=== PATIENT | female | born 1940 | race Caucasian/White ===

== ENCOUNTER 2016-10-13 11:58 | Inpatient (IN) | payer MEDICARE, OTHER ==
[2016-10-13] MEDS ORDERED: ONDANSETRON HCL/PF 2 MG/ML VIAL IV ONE (12:21)
[2016-10-13] MEDS ORDERED: MORPHINE SULFATE 2 MG/ML DISP.SYRIN IV ONE ×3 (12:21→15:34)
[2016-10-13] MEDS ORDERED: MORPHINE SULFATE 2 MG/ML DISP.SYRIN ONE ×3 (12:23→15:32)
[2016-10-13] MEDS ORDERED: ONDANSETRON HCL/PF 2 MG/ML VIAL ONE (12:23)
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
[2016-10-13 13:30] LABS: Hematocrit 41.7 % (37.0-47.0); Hemoglobin 14.1 gm/dL (12.5-16.0); Mean Cell Volume 91.9 fl (78-100); Mean Corpuscular Hemoglobin 31.1 pg (27-31); Mean Corpuscular Hgb Conc 33.8 g/dl (32-36); Neutrophil % 49.4 % (42-75.0); Platelet Count 283 K/mm3 (150-450); Red Blood Count 4.54 M/mm3 (4.2-5.4); Red Cell Distribution Width 13.2 % (11.5-14.0)
[2016-10-13 13:40] LABS: Albumin * 3.8 gm/dl (3.4-5.0); Anion Gap 15.2 mmol/L (6.8-13.8); Bilirubin, Total 0.3 mg/dL (0.0-1.1); Ca. Corrected For Albumin 9.1 mg/dL (8.4-10.2); Calcium * 9.3 mg/dL (7.9-10.9); Carbon Dioxide 24.6 mmol/L (24-32.6); Potassium 3.8 mmol/L (3.4-4.6); Total Protein 7.3 gm/dL (6.2-8.2)
[2016-10-13 13:43] LABS: Urine Bilirubin Negative (NEGATIVE); Urine Blood Negative /ul (NEGATIVE); Urine Ketone Negative (NEGATIVE); Urine Nitrite Negative (NEGATIVE); Urine Protein Negative (NEGATIVE); Urine Specific Gravity <=1.005 SP.GR. (1.005-1.010); Urine Urobilinogen Normal (NORMAL); Urine pH 8.5 pH (5.0-7.0)
[2016-10-13 13:50] LABS: Urine Appearance Clear; Urine Bacteria TRACE; Urine Color Pale Yellow; Urine RBC None Seen /hpf (0-5); Urine WBC 0-5 /hpf (0-5)
--- OUTSIDE RECORDS SUMMARY | 2016-10-13 14:29 | XMS REPORT | Continuity of Care Document ---
:1940 Author Organization [facility] ([facility]) Address [address] [place] [address] Phone [phone] Care Team Providers Name Role Phone Unavailable Primary Care Provider Unavailable Source Comments This disclosure is being made pursuant to the Care Everywhere program, applicable federal and state laws, and may not contain all informaitonavailable regarding this patient.[facility] ([facility]) Active Allergies and Adverse Reactions Not on File Current Medications Not on file Active Problems Not on file Social History Tobacco Use Types Packs/Day Years Used Date Never Assessed Plan of Care Health Maintenance Due Date Last Done Comments Hepatitis B Vaccine (1 of 3 - Primary Series) 1940 Tdap Vaccine 1953 Lipid Disorder Screening 1960 Td Vaccine 1960 Mammogram 1982 Colonoscopy 08/04/1992 Zoster Vaccine 2002 Osteoporosis Screening (DXA Bone Density) 2007 Pneumococcal Vaccine (1 of 2 - PCV13) 2007 Influenza Vaccine: Seasonal (#1) 01/20/2016 Results from Last 3 Months Not on file
--- OUTSIDE RECORDS SUMMARY | 2016-10-13 14:32 | XMS REPORT | Continuity of Care Document ---
:1940 Author Organization [facility] ([facility]) Address [address] [place] [address] Phone [phone] Care Team Providers Name Role Phone Unavailable Primary Care Provider Unavailable Source Comments This disclosure is being made pursuant to the Care Everywhere program, applicable federal and state laws, and may not contain all informaitonavailable regarding this patient.[facility] ([facility]) Active Allergies and Adverse Reactions Not [...]
--- NOTE | 2016-10-13 16:29 | HP ---
Chief Complaint - Chief Complaint Date of Service: 10/13/16 Time of Service: 16:18 Chief Complaint: right hip pain History of Present Illness: Devi Gar, is a 76-year-old white female, with previous medical history of hyperlipidemia, impaired fasting glucose, kidney stones, Diverticulosis, who was in admitted on 10/13/2016 for right hip pain. A few hours prior to admission , the patient was watering her garden and drop the water hose to the ground to go back to the house. As she was doing this she tripped over the water hose and fell down on her right side. She was able to stand initially but then developed severe right hip pain and so she was brought to the emergency room by private vehicle. In the emergency room she was found to have minimally displaced impacted right femoral neck fracture. She was then admitted for further orthopedic intervention. She denied any chest pain, shortness of breath , palpitation. - Patient's Past Medical History Patient History - Medical: Kidney stone Patient History - Cardiac/Respiratory: Hyperlipidemia Patient History - Cancer: No Hx of Cancer Patient History - Surgical Procedures: Appendectomy, Colonoscopy - Diverticulosis, last in 2015, D & C, Hysterectomy, Other - FLORENCIO 1999, Orthopedic - Shoulder 2006 Patient History - Other: None LMP (females 10-50): Menopausal - Family History Mother Family History - Medical: , No pertinent hx Family History - Cardiac/Respiratory: No pertinent hx Father Family History - Medical: , Diabetes Type 2 Family History - Cardiac/Respiratory: Hypertension, Other - Social History Living Situations: spouse Abuse History: No History of abuse Psych History: Hx of Depression, Current tx/ever been on anti-depressants or anti-anxiety meds Smoking Status: Former smoker - quit at age 33 Alcohol Use: none Drug Use: none - Immunizations Immunizations Up to Date: Yes - last tetanus in 2010 Hx Pneumococcal Vaccination: Yes - 2014 History of Influenza Vaccine: Yes - 2015 Review Of Systems (GEN) - Review of Systems Generalized/Overall Review: Absent: Weakness, Chills, Fever EENTM: Present: No Symptoms Reported Respiratory: Absent: Cough, Shortness of Breath, Orthopnea Cardiac: Absent: Chest Pain, Edema, Palpitations Abdominal: Absent: Nausea, Vomiting Genitourinary: Absent: Urgency, Frequency Musculoskeletal: Present: Joint Pain Allergies/Adverse Reactions: Allergies Allergy/AdvReac Type Severity Reaction Status Date / Time JOHNNY Inhibitors AdvReac Mild cough Verified 10/13/16 16:36 [Johnny Inhibitors] celecoxib [From Celebrex] AdvReac Mild TINNITUS Verified 10/13/16 16:36 NSAIDS (Non-Steroidal AdvReac Mild TINNITUS Verified 10/13/16 16:36 Anti-Inflamma propoxyphene HCl AdvReac Mild equilibrium Verified 10/13/16 16:36 [From Darvon] upset Home Medications: HOME MEDICATIONS Acetaminophen [Tylenol-Arthritis] 650 mg PO BID 12/05/12 [Last Taken 02/07/13] Pravastatin Sodium [Pravachol] 80 mg PO HS 12/05/12 [Last Taken 02/06/13] metFORMIN HCL [Glucophage] 500 mg PO BIDWM 12/05/12 [Last Taken 02/07/13] Ascorbic Acid [Vitamin C with Jacki Hips] 1,000 mg PO DAILY 02/25/16 [Last Taken Unknown] Aspirin [Aspirin Enteric Coated] 81 mg PO DAILY 02/25/16 [Last Taken Unknown] Calcium Carbonate/Vitamin D3 [Calcium 600 + Vit D3 Caplet] 1 each PO BID [Last Taken Unknown] Estrogens, Conjugated [Premarin] 0.5 gm VG 2XW PRN 02/25/16 [Last Taken Unknown] FLUoxetine HCL [Prozac] 20 mg PO DAILY 02/25/16 [Last Taken Unknown] Fexofenadine/Pseudoephedrine [Ethel-D 24 Hour Tablet] 1 each PO DAILY PRN 12/04 [Last Taken Unknown] LORazepam [Ativan] 0.5 mg PO HS 02/25/16 [Last Taken Unknown] Cetirizine HCl/Pseudoephedrine [Allergy D-12 Tablet] 1 each PO DAILY 10/13/16 [ Last Taken Unknown] Clobetasol Propionate/Emoll [Clobetasol Emollient 0.05% Crm] 15 gm TP PRN PRN [Last Taken Unknown] Exam - Exam Vital Signs: Vital Signs - Last Taken Temp 36.9 C 10/13/16 16:06 Pulse 76 10/13/16 16:06 Resp 16 10/13/16 16:06 BP 153/74 10/13/16 16:06 Pulse Ox 97 10/13/16 16:06 Constitutional: Present: Alert, Oriented x3, Cooperative ENT Exam: Present: hearing grossly normal Eye Exam: bilateral eye: normal inspection, PERRL, EOMI Neck: Present: supple Back Exam: Present: no CVA tenderness Breasts: Present: Exam deferred Respiratory: Present: normal breath sounds, No rales, No wheezing Cardiovascular/Chest: Present: normal peripheral pulses, regular rate, rhythm, no murmur Abdomen: Present: Normal bowel sounds, soft, nontender, nondistended Extremity: Present: no pedal edema, no calf tenderness, other - bruise, right elbow Diagnostic Studies: Laboratory Results WBC 8.0 K/mm3 (4.0-10.5) 10/13/16 13:15 RBC 4.54 M/mm3 (4.2-5.4) 10/13/16 13:15 Hgb 14.1 gm/dL (12.5-16.0) 10/13/16 13:15 Hct 41.7 % (37.0-47.0) 10/13/16 13:15 MCV 91.9 fl (78-100) 10/13/16 13:15 MCH 31.1 pg (27-31) H 10/13/16 13:15 MCHC 33.8 g/dl (32-36) 10/13/16 13:15 RDW 13.2 % (11.5-14.0) 10/13/16 13:15 Plt Count 283 K/mm3 (150-450) 10/13/16 13:15 MPV 10.0 fl (6.0-9.5) H 10/13/16 13:15 Immature Gran % (Auto) 0.60 % (0.001-0.429) H 10/13/16 13:15 Immature Gran # (Auto) 0.05 K/mm3 (0.000-0.0310) H 10/13/16 13:15 Neutrophils % 49.4 % (42-75.0) 10/13/16 13:15 Lymphocytes % 39.9 % (20-51) 10/13/16 13:15 Monocytes % 8.8 % (0.0-9) 10/13/16 13:15 Eosinophils % 0.6 % (0.0-3.0) 10/13/16 13:15 Basophils % 0.7 % (0.0-1.0) 10/13/16 13:15 Nucleated RBC % 0.0 k/mm3 (0-1) 10/13/16 13:15 Neutrophils # 4.0 K/mm3 (1.3-6.0) 10/13/16 13:15 Lymphocytes # 3.2 k/mm3 (1.5-3.5) 10/13/16 13:15 Monocytes # 0.7 k/mm3 (0.0-1.0) 10/13/16 13:15 Eosinophils # 0.1 k/mm3 (0.0-0.7) 10/13/16 13:15 Absolute Basophils 0.1 k/mm3 (0.0-0.1) 10/13/16 13:15 Sodium 141 mmol/L (132-142) 10/13/16 13:15 Plasma Sodium 141 mmol/L (130-142) 10/13/16 13:15 Potassium 3.8 mmol/L (3.4-4.6) 10/13/16 13:15 Chloride 105 mmol/L (97-106) 10/13/16 13:15 Carbon Dioxide 24.6 mmol/L (24-32.6) 10/13/16 13:15 Anion Gap 15.2 mmol/L (6.8-13.8) H 10/13/16 13:15 BUN 15 mg/dL (3-23) D 10/13/16 13:15 Creatinine 1.00 mg/dL (0.4-1.4) 10/13/16 13:15 Est GFR (Non-Af Amer) 58 mL/min (60-130) L D 10/13/16 13:15 BUN/Creatinine Ratio 15.0 (9.0-21.6) 10/13/16 13:15 Random Glucose 97 mg/dL (70-110) 10/13/16 13:15 Calcium 9.3 mg/dL (7.9-10.9) 10/13/16 13:15 Calcium Adj for Albumin 9.1 mg/dL (8.4-10.2) 10/13/16 13:15 Total Bilirubin 0.3 mg/dL (0.0-1.1) 10/13/16 13:15 AST 18 U/L (0-48) 10/13/16 13:15 ALT 19 U/L (19-67) 10/13/16 13:15 Alkaline Phosphatase 74 U/L (50-170) 10/13/16 13:15 Total Protein 7.3 gm/dL (6.2-8.2) 10/13/16 13:15 Albumin 3.8 gm/dl (3.4-5.0) 10/13/16 13:15 Urine Color Pale yellow 10/13/16 13:35 Urine Appearance Clear 10/13/16 13:35 Urine pH 8.5 pH (5.0-7.0) 10/13/16 13:35 Ur Specific [place] <=1.005 SP.GR. (1.005-1.010) 10/13/16 13:35 Urine Protein Negative mg/dL (NEGATIVE) 10/13/16 13:35 Urine Glucose (UA) Negative mg/dL (NEGATIVE) 10/13/16 13:35 Urine Ketones Negative mg/dL (NEGATIVE) 10/13/16 13:35 Urine Blood Negative /ul (NEGATIVE) 10/13/16 13:35 Urine Nitrate Negative (NEGATIVE) 10/13/16 13:35 Urine Bilirubin Negative mg/dl (NEGATIVE) 10/13/16 13:35 Urine Urobilinogen Normal EU/dl (NORMAL) 10/13/16 13:35 Ur Leukocyte Esterase Negative /ul (NEGATIVE) 10/13/16 13:35 Urine RBC None seen /hpf (0-5) 10/13/16 13:35 Urine WBC 0-5 /hpf (0-5) 10/13/16 13:35 Ur Epithelial Cells None seen /hpf (0-5) 10/13/16 13:35 Urine Bacteria Trace (NONE) 10/13/16 13:35 Urine Culture Comments Culture to follow 10/13/16 13:35 Assessment/Plan - Assessment/Plan (1) Hip fracture, right Assessment: Femoral neck Fracture, subcapital. For ORIF. Dr. Sanchez was consulted. She may proceed with anticipated surgery. Problem: Acute Qualifiers: Encounter type: initial encounter Fracture type: closed Qualified Code(s) : S72.001A - Fracture of unspecified part of neck of right femur, initial encounter for closed fracture (2) Hyperlipidemia Problem: Chronic Qualifiers: Hyperlipidemia type: mixed hyperlipidemia Qualified Code(s): E78.2 - Mixed hyperlipidemia (3) Impaired fasting glucose Problem: Chronic
[2016-10-13] MEDS ORDERED: ESTROGENS, CONJUGATED 30 APPL TUBE VG SCH (16:30)
[2016-10-13] MEDS ORDERED: ONDANSETRON HCL/PF 2 MG/ML VIAL IV PRN (16:43)
[2016-10-13] MEDS ORDERED: ACETAMINOPHEN 325 MG TABLET PO PRN (16:44)
[2016-10-13] MEDS: MORPHINE SULFATE 2 MG/ML DISP.SYRIN IV PRN ×2 (17:19→19:19)
[2016-10-13] MEDS ORDERED: rOPINIRole HCL 1 MG TABLET PO ONE (17:51)
[2016-10-13] MEDS: CALCIUM CARBONATE/VITAMIN D3 1 TAB TABLET PO SCH (20:58)
[2016-10-13] MEDS: LORazepam 0.5 MG TABLET PO SCH (20:58)
[2016-10-14] MEDS: MORPHINE SULFATE 2 MG/ML DISP.SYRIN IV PRN ×4 (00:10→11:39)
[2016-10-14] MEDS: DEXTROSE 5%-0.5 NORMAL SALINE 1,000 ML IV PRN ×3 (00:10→18:52)
--- NOTE | 2016-10-14 07:48 | PN ---
Subjective - Date and Time Seen Date: 10/14/16 Time: 07:46 Subjective Narrative: Chief complain of hip pain. Objective - Review of Systems Generalized/Overall Review: Denies: Chills, Fever EENTM: Reports: No Symptoms Reported Respiratory: Denies: Cough, Shortness of Breath, Orthopnea Cardiac: Denies: Chest Pain, Edema, Palpitations Abdominal: Denies: Nausea, Vomiting Genitourinary Symptoms: Denies: Urgency, Frequency Musculoskeletal Complaints: Reports: Joint Pain - Vitals Vitals: Last Vital Signs Temp 36.9 C 10/14/16 07:11 Pulse 78 10/14/16 07:11 Resp 18 10/14/16 07:11 BP 158/75 10/14/16 07:11 Pulse Ox 95 10/14/16 07:11 - Exam Constitutional: Present: Alert, Oriented x3, Cooperative ENT Exam: Present: hearing grossly normal Neck: Present: supple Breasts: Present: Exam deferred Respiratory: Present: normal breath sounds, No rales, No wheezing Cardiovascular/Chest: Present: regular rate, rhythm, no JVD, no murmur Abdomen: Present: Normal bowel sounds, soft, nontender, nondistended Extremity: Present: no pedal edema, no calf tenderness Cauti Physician Documentation - Urinary Catheter Management Urethral (Helms) Date of Insertion: 10/13/16 Time of Insertion: 13:36 Assessment/Plan - Problems/Diagnosis (1) Hip fracture, right Problem: Acute Qualifiers: Encounter type: initial encounter Fracture type: closed Qualified Code(s) : S72.001A - Fracture of unspecified part of neck of right femur, initial encounter for closed fracture Narrative: for OR today. (2) Hyperlipidemia Problem: Chronic Qualifiers: Hyperlipidemia type: mixed hyperlipidemia Qualified Code(s): E78.2 - Mixed hyperlipidemia (3) Impaired fasting glucose Problem: Chronic
--- NOTE | 2016-10-14 08:35 | CONS ---
[facility] - General Date of Service: 10/14/16 Narrative: Devi is a 76 yo F admitted for a R femoral neck fracture. She sustained the fracture after a ground level fall onto concrete after tripping on a hose at home. She was initially evaluated in the [facility] ED where plain films revealed the above injury. Her pain is currently controlled with IV pain medication. She denies any other injuries. Denies numbness or tingling in the RLE. She is an independent community ambulator who helps take care of her two grandchildren. - History of Present Illness Allergies/Adverse Reactions: Allergies JOHNNY Inhibitors [Johnny Inhibitors] Adverse Reaction (Mild, Verified 10/13/16 16:36) cough celecoxib [From Celebrex] Adverse Reaction (Mild, Verified 10/13/16 16:36) TINNITUS NSAIDS (Non-Steroidal Anti-Inflamma Adverse Reaction (Mild, Verified 10/13/16 16 :36) TINNITUS propoxyphene HCl [From Darvon] Adverse Reaction (Mild, Verified 10/13/16 16:36) equilibrium upset Home Medications: Home Medications Medication Instructions Recorded Last Taken Acetaminophen [Tylenol-Arthritis] 650 mg PO BID 12/05/12 02/07/13 Pravastatin Sodium [Pravachol] 80 mg PO HS 12/05/12 02/06/13 metFORMIN HCL [Glucophage] 500 mg PO BIDWM 12/05/12 02/07/13 Ascorbic Acid [Vitamin C with Jacki 1,000 mg PO DAILY 02/25/16 Unknown Hips] Aspirin [Aspirin Enteric Coated] 81 mg PO DAILY 02/25/16 Unknown Calcium Carbonate/Vitamin D3 1 each PO BID 02/25/16 Unknown [Calcium 600 + Vit D3 Caplet] Estrogens, Conjugated [Premarin] 0.5 gm VG 2XW PRN 02/25/16 Unknown FLUoxetine HCL [Prozac] 20 mg PO DAILY 02/25/16 Unknown Fexofenadine/Pseudoephedrine 1 each PO DAILY PRN 02/25/16 Unknown [Ethel-D 24 Hour Tablet] LORazepam [Ativan] 0.5 mg PO HS 02/25/16 Unknown Cetirizine HCl/Pseudoephedrine 1 each PO DAILY 10/13/16 Unknown [Allergy D-12 Tablet] Clobetasol Propionate/Emoll 15 gm TP PRN PRN 10/13/16 Unknown [Clobetasol Emollient 0.05% Crm] - Patient's Past Medical History Patient History - Medical: Kidney stone Patient History - Cardiac/Respiratory: Hyperlipidemia Patient History - Cancer: No Hx of Cancer Patient History - Surgical Procedures: Appendectomy, Colonoscopy - Diverticulosis, last in 2015, D & C, Hysterectomy, Other - FLORENCIO 1999, Orthopedic - Shoulder 2006 Patient History - Other: None LMP (females 10-50): Menopausal - Family History Mother Family History - Medical: , No pertinent hx Family History - Cardiac/Respiratory: No pertinent hx Father Family History - Medical: , Diabetes Type 2 Family History - Cardiac/Respiratory: Hypertension, Other - Social History Living Situations: spouse Abuse History: No History of abuse Psych History: Hx of Depression, Current tx/ever been on anti-depressants or anti-anxiety meds Smoking Status: Former smoker - quit at age 33 Have you smoked in the past 12 months: No Alcohol Use: none Drug Use: none - Immunizations Immunizations Up to Date: Yes - last tetanus in 2010 Hx Pneumococcal Vaccination: Yes - 2014 History of Influenza Vaccine: Yes - 2015 Procedures ANESTH INJECT-SPIN CANAL (12/21/00) CONTRAST ARTHROGRAM (04/22/06) ENDOSC POLYPECTOMY OF LG INTEST (03/11/04) EXCISION OF LARGE INTESTINE, ENDO, DIAGN (03/16/16) EXCISION OF RECTUM, ENDO, DIAGN (03/16/16) INJECT STEROID (12/21/00) PERCUTAN NEEDLE BIOPSY OF BREAST (04/14/05) SPINAL CANAL INJECT NEC (12/21/00) Medications - Medications Current Medications: Current Medications Calcium/Vitamin D (Calcarb 600 With Vitamin D) 1 tab PO BID LAXMI Stop: 11/12/16 21:01 Last Admin: 10/13/16 20:58 Dose: 1 tab Dextrose/Sodium Chloride (Dextrose 5%-0.45%Ns) 1,000 mls @ 75 mls/hr IV .[id number] PRN PRN Reason: HYDRATION Stop: 11/12/16 23:56 Last Admin: 10/14/16 00:10 Dose: 75 mls/hr Lorazepam (Ativan) 0.5 mg PO BID LAXMI Stop: 11/12/16 21:01 Last Admin: 10/13/16 20:58 Dose: 0.5 mg Morphine Sulfate (Morphine Sulfate) 2 mg IV Q2H PRN PRN Reason: Moderate Pain Stop: 11/12/16 16:42 Last Admin: 10/14/16 07:16 Dose: 2 mg Physical Examination - Exam Narrative: Gen: A&Ox4, NAD Resp: breathing non-labored on RA, lungs clear to auscultation CV: RRR, no murmurs/rubs/gallops MSK: tender about R hip, pain with gentle motion, 5/5 DF/PF/EHL/FHL, SILT, distal cap refill brisk Vital Signs: Vital Signs - Last Taken Temp 36.9 C 10/14/16 07:11 Pulse 78 10/14/16 07:11 Resp 18 10/14/16 07:11 BP 158/75 10/14/16 07:11 Pulse Ox 95 10/14/16 07:11 O2 Oxygen Delivery Method Room Air - Results and Findings: Narrative: 76 yo F community ambulator with displaced R femoral neck fracture. - Discussed treatment options with patient in detail today. She has a mildly displaced femoral neck fracture with significant valgus impaction. I think the best treatment based on the fracture and her functional status would be a total hip arthroplasty. I discussed the risks and benefits in detail with patient including, but not limited to, infection, bleeding, neurovascular injury, fracture, dislocation, loosening/implant failure, leg length discrepancy, wound complications, DVT/PE, and . I also discussed the procedure itself as well as the expected postoperative recovery and precautions. After discussion, the patient wishes to proceed with R total hip arthroplasty later this afternoon. - informed consent obtained - patient NPO since MN - bedrest - monroe catheter - continue care per Medicine team - dispo: Continue inpatient care - Assessments/Findings (1) Hip fracture, right Problem: Acute Qualifiers: Encounter type: initial encounter Fracture type: closed Qualified Code(s) : S72.001A - Fracture of unspecified part of neck of right femur, initial encounter for closed fracture
[2016-10-14] MEDS ORDERED: FLUoxetine HCL 20 MG CAPSULE PO SCH (09:00)
[2016-10-14] MEDS: LORazepam 0.5 MG TABLET PO SCH ×2 (10:25→20:20)
[2016-10-14] MEDS: FLUoxetine HCL 20 MG CAPSULE PO SCH (10:25)
[2016-10-14] MEDS: CALCIUM CARBONATE/VITAMIN D3 1 TAB TABLET PO SCH ×2 (10:25→20:20)
[2016-10-14] MEDS ORDERED: RINGERS SOLUTION,LACTATED 900 ML IV ONE (15:05)
[2016-10-14] MEDS ORDERED: ceFAZolin SODIUM 1 GM VIAL IM/IV ONE (15:35)
[2016-10-14] MEDS ORDERED: RINGERS SOLUTION,LACTATED 1,000 ML IV ONE (16:30)
[2016-10-14] MEDS ORDERED: MAG HYDROX/ALUMINUM HYD/SIMETH 30 ML UDC PO PRN (18:13)
[2016-10-14] MEDS ORDERED: PROMETHAZINE HCL 5 MG in DEXTROSE 5 % IN WATER 50 ML IV PRN ×2 (18:13)
[2016-10-14] MEDS ORDERED: ACETAMINOPHEN 500 MG TABLET PO PRN (18:13)
[2016-10-14] MEDS ORDERED: MAGNESIUM HYDROXIDE 30 ML UDC PO PRN (18:13)
[2016-10-14] MEDS ORDERED: ONDANSETRON HCL/PF 2 MG/ML VIAL IV PRN (18:13)
[2016-10-14] MEDS ORDERED: oxyCODONE HCL/ACETAMINOPHEN 1 TAB TABLET PO PRN (18:13)
--- NOTE | 2016-10-14 18:13 | OR ---
Operative Report - Dictated Report Narrative: Date: 10/14/2016 Preoperative diagnosis: Right displaced subcapital femoral neck fracture Postoperative diagnosis: Right displaced subcapital femoral neck fracture Procedure: Right Total hip arthroplasty. Surgeon: Michael Sanchez M.D. Athletic Coach: Girma Lockwood RN Anesthesia: Spinal Complications: None Specimens: Bone for disposal. Estimated blood loss: 200 milliliters. Retained implants: Depuy [place] size 5 femoral stem standard offset. Size 50 millimeter ouside diameter 3-hole [place] Gription acetabular cup. 50 millimeter outside by 32 millimeter inside diameter highly cross-linked acetabular liner. 32 millimeter diameter + 9 millimeter cobalt chromium femoral head. Cancellous 6.5mm screw 35 millimeter length Indications: Devi Is a 76-year-old female community ambulator who sustained a right displaced subcapital femoral neck fracture after a trip and fall from standing height. She was initially evaluated in the [facility] emergency department where workup revealed the above injury. She was admitted to the hospital under the internal medicine service and orthopedics was consult. I counseled her on treatment options and recommended a total hip arthroplasty based on the displacement of the fracture as well as her functional status. The risks, benefits, and alternatives were discussed in clinic. The risks of , blood clots, bleeding, infection, nerve/tendon blood vessel/ injury, malposition of components, dislocation and/or instability of joint, intraoperative fracture, postoperative limited range of motion, persistent pain, failure of components, need for additional procedures, DVT/PE, and . Patient wished to proceed. Consent was obtained after answering all questions. Procedure: After marking the correct extremity on the floor, the patient was taken to the operating room. A timeout was performed. IV antibiotics consisting of 1 g of Ancef were administered prior to the procedure. A spinal anesthetic was induced by anesthesia. The patient was then transitioned to a lateral position on a well-padded pegboard. And an axillary roll was placed. The head was in neutral position. The non-operative down leg was well-padded with SCD and KAREN hose in place. The arms were supported and padded to protect from any undue pressure on the bony prominences and nerves. Well-padded anterior and posterior pelvic and chest posts were secured in order to maintain a stable position of the pelvis. This was placed so that the pelvis was perpendicular to the floor. The body was in line with the pelvis. Once it was felt that we had protected all the bony prominences and the patient was well secured with a safety belt as well, the leg was pre-scrubbed with alcohol, prepped and draped in a standard sterile fashion. A standard anterior lateral hip incision was marked out over the greater trochanter. Ioban drapes were then placed. The skin incision was then made. Sharp dissection with a scalpel utilizing cautery for hemostasis was carried out down to the gluteus and iliotibial band fascia. This was split in line with the skin incision. The greater trochanter bursa was excised. The anterior and posterior margins of the abductor tendon were identified. The anterior 1/3 of the tendon was tagged and reflected off the greater trochanter leaving a sleeve of tendon for repair at the completion of the case. This exposed the underlying hip joint capsule. A limb length stitch was placed in the skin and referenced off a zarina on the greater trochanter for evaluation of intraoperative limb lengths. An inverted T-type capsulotomy was made extending this up to the brim of the acetabulum. Fracture hematoma was immediately encountered. The subcapital femoral neck fracture was visualized and found to have significant valgus impaction. Using Homans to assist with elevation of the soft tissues off the anterior, superior, and inferior aspects of the femoral neck, the hip was then placed in a figure 4 position and dislocated with the femoral head remaining in the acetabulum. With the leg in an externally rotated and adducted position, the cutting flag was utilized in order to zarina for a standard femoral neck cut approximately a fingerbreadth above the level of the lesser trochanter. This was done while protecting the surrounding soft tissues with Homans. The femoral neck fracture was then cleaned up along the marked out cut with a reciprocating saw. The femoral head was then removed using a corkscrew and sized for guidance on preparation of the acetabulum. It was noted that there was minimal loss of articular cartilage on both the femoral head and weightbearing portions of the acetabulum. We then returned the leg to the table and turned our attention to the acetabulum. While protecting the surrounding soft tissues, the labrum and remaining tissue in the fovea were excised using a scalpel and cautery. A series of reamers up to size 49 millimeter were utilized to prepare the acetabulum. The final reamer had good purchase and exposed the bleeding subchondral bone. The acetabulum was then thoroughly irrigated ensuring that all bony and cartilaginous materials were removed and the final acetabular shell was impacted into place. This was placed in approximately 45 degrees of abduction and 20 degrees of anteversion utilizing the outrigger and body axis for alignment. This had a good press fit. One 6.5 x 35 mm cancellous screw was placed in the posterior superior quadrant of the acetabulum. The shell was then thoroughly irrigated and the final polyethylene was impacted into place ensuring that it seated completely. This was then protected with a sponge while we returned our attention to the femur. With the leg in a figure 4 position utilizing Homans for soft tissue protection , a box cutting osteotome, followed by Charnley awl, followed by serial reamers and broaches were utilized in order to prepare the femur. It was found that a size 5 broach gave good axial and rotational stability. The calcar reamer was utilized in order to clean up the cut edges. The proximal femur was visualized to ensure that there were no signs of fracture. A series of heads and necks were trialed. It was found that a standard neck and a + 9 femoral head gave good overall stability. There is minimal longitudinal instability. With the leg in the position of sleep the femoral head was well covered. Hip range of motion was able to reach full extension and external rotation to greater than 75 degrees prior to impingement along the posterior acetabulum. The hip was able to be flexed to greater than 90 degrees with internal rotation greater than 60 degrees prior to anterior impingement. The limb lengths were near equal based on comparison to the contralateral side in the prior placed limb length stitch. At this point was felt this was the appropriately sized femoral components as well as neck and femoral head. The trial implants were removed. The femur was thoroughly irrigated. The final implants were impacted in the place and the hip was reduced. The capsule was repaired with interrupted #1 Ethibond. The abductor tendon was repaired utilizing #5 Ethibond. This was oversewn with #1 Vicryl. The fascia was closed with interrupted #1 Vicryl. The wounds were thoroughly irrigated as we closed in layers. The deep fat layers were closed with 0 Vicryl. The subcutaneous tissue was closed with interrupted 3-0 Vicryl and the skin with a running subcuticular 3-0 monocryl and Prineo dressing. All sponge, needle, blade, and instrument counts were correct prior to closing the wounds. Sterile dressings consisting of 4 x 4's and tape were applied. The patient was awoken and transferred to her hospital bed and then to the postanesthesia care unit in stable condition.
[2016-10-14] MEDS: ceFAZolin SODIUM 1 GM in DEXTROSE 5 % IN WATER 100 ML IV SCH ×2 (20:19)
[2016-10-14] MEDS: SENNOSIDES/DOCUSATE SODIUM 1 TAB TABLET PO SCH (20:20)
[2016-10-14] MEDS: MORPHINE SULFATE 4 MG/ML SYRG IV PRN (21:01)
[2016-10-14] MEDS: oxyCODONE HCL/ACETAMINOPHEN 1 TAB TABLET PO PRN (23:01)
[2016-10-15] MEDS: ceFAZolin SODIUM 1 GM in DEXTROSE 5 % IN WATER 100 ML IV SCH ×4 (01:49→09:07)
[2016-10-15] MEDS: MORPHINE SULFATE 4 MG/ML SYRG IV PRN (01:49)
[2016-10-15] MEDS: oxyCODONE HCL/ACETAMINOPHEN 1 TAB TABLET PO PRN ×4 (04:13→19:58)
[2016-10-15 05:46] LABS: Hematocrit 36.9 % (37.0-47.0); Hemoglobin 12.4 gm/dL (12.5-16.0); Mean Cell Volume 93.4 fl (78-100); Mean Corpuscular Hemoglobin 31.4 pg (27-31); Mean Corpuscular Hgb Conc 33.6 g/dl (32-36); Mean Platelet Volume 10.4 fl (6.0-9.5); Platelet Count 222 K/mm3 (150-450); Red Blood Count 3.95 M/mm3 (4.2-5.4); White Blood Count 12.7 K/mm3 (4.0-10.5)
[2016-10-15 05:48] LABS: Anion Gap 13.6 mmol/L (6.8-13.8); BUN/Creatinine Ratio 10.2 (9.0-21.6); Calcium * 8.3 mg/dL (7.9-10.9); Carbon Dioxide 24.3 mmol/L (24-32.6); Estimated Creat Clear 46.4; Potassium 3.9 mmol/L (3.4-4.6)
[2016-10-15] MEDS ORDERED: MORPHINE SULFATE 2 MG/ML DISP.SYRIN IV PRN (06:23)
--- NOTE | 2016-10-15 08:00 | PN ---
Subjective - Date and Time Seen Date: 10/15/16 Time: 07:49 Subjective Narrative: POS # 1. Afebrile- Tmax 36.9. chief complaint of pain. Objective - Review of Systems Generalized/Overall Review: Denies: Chills, Fever EENTM: Reports: No Symptoms Reported Respiratory: Denies: Shortness of Breath, Orthopnea Cardiac: Denies: Chest Pain, Palpitations Abdominal: Denies: Nausea, Vomiting Genitourinary Symptoms: Denies: Urgency, Frequency Musculoskeletal Complaints: Reports: Joint Pain - Vitals Vitals: Last Vital Signs Temp 36.9 C 10/15/16 06:44 Pulse 91 10/15/16 06:44 Resp 14 10/15/16 06:44 BP 173/80 10/15/16 06:44 Pulse Ox 100 10/15/16 06:44 - Abnormal Lab Findings Abnormal Lab Findings: Abnormal Lab Results 10/15/16 10/15/16 Range/Units 05:37 05:37 WBC 12.7 H D (4.0-10.5) K/mm3 RBC 3.95 L (4.2-5.4) M/mm3 Hgb 12.4 L (12.5-16.0) gm/dL Hct 36.9 L (37.0-47.0) % MCH 31.4 H (27-31) pg MPV 10.4 H (6.0-9.5) fl Random Glucose 176 H D (70-110) mg/dL - Exam Constitutional: Present: Alert, Oriented x3, Cooperative ENT Exam: Present: hearing grossly normal Neck: Present: supple Breasts: Present: Exam deferred Respiratory: Present: decreased breath sounds, No rales, No wheezing Cardiovascular/Chest: Present: regular rate, rhythm, no JVD, no murmur Abdomen: Present: Normal bowel sounds, soft, nontender, nondistended Extremity: Present: no pedal edema, no calf tenderness Cauti Physician Documentation - Urinary Catheter Management Urethral (Helms) Date of Insertion: 10/13/16 Time of Insertion: 13:36 Date of Removal: 10/15/16 Time of Removal: 06:55 Assessment/Plan - Problems/Diagnosis (1) Hip fracture, right Problem: Acute Qualifiers: Encounter type: initial encounter Fracture type: closed Qualified Code(s) : S72.001A - Fracture of unspecified part of neck of right femur, initial encounter for closed fracture Narrative: POD # 1. Leukocytosis likely inflammatory. afebrile. continue with PT/OT. (2) Hyperlipidemia Problem: Chronic Qualifiers: Hyperlipidemia type: mixed hyperlipidemia Qualified Code(s): E78.2 - Mixed hyperlipidemia (3) Impaired fasting glucose Problem: Chronic Narrative: stay on diabetic diet-low carb diet. (4) Elevated blood pressure reading without diagnosis of hypertension Problem: Acute Narrative: likely due to stress and pain.She was told the at she has PRN pain meds that she can ask for.
--- NOTE | 2016-10-15 08:29 | PN ---
Subjective - Date and Time Seen Date: 10/15/16 Subjective Narrative: Pain overnight and difficulty sleeping. Controlled this am. No other complaints. Objective - Vitals Vitals: Last Vital Signs Temp 36.9 C 10/15/16 06:44 Pulse 91 10/15/16 06:44 Resp 14 10/15/16 06:44 BP 173/80 10/15/16 06:44 Pulse Ox 100 10/15/16 06:44 - Abnormal Lab Findings Abnormal Lab Findings: Abnormal Lab Results 10/15/16 10/15/16 Range/Units 05:37 05:37 WBC 12.7 H D (4.0-10.5) K/mm3 RBC 3.95 L (4.2-5.4) M/mm3 Hgb 12.4 L (12.5-16.0) gm/dL Hct 36.9 L (37.0-47.0) % MCH 31.4 H (27-31) pg MPV 10.4 H (6.0-9.5) fl Random Glucose 176 H D (70-110) mg/dL - Exam Exam Narrative: Gen: A&Ox4, NAD Resp: breathing non-labored on RA MSK: RLE--> dressings c/d/i, SILT, 5/5 EHL/FHL/DF/PF, cap refill brisk Cauti Physician Documentation - Urinary Catheter Management Urethral (Monroe) Date of Insertion: 10/13/16 Time of Insertion: 13:36 Date of Removal: 10/15/16 Time of Removal: 06:55 Assessment/Plan Plan Narrative: 76 yo F w/ displaced R femoral neck fx s/p R CATRINA, POD #1. - WBAT, anterior hip precautions - reg diet - oral pain meds - monroe out today - Hgb 12.4 - monitor - PT/OT - DVT ppx: lovenox/SCDs/apolinar weinere - continue care per Medicine team - dispo: continue inpatient care - Problems/Diagnosis (1) Hip fracture, right Problem: Acute Qualifiers: Encounter type: initial encounter Fracture type: closed Qualified Code(s) : S72.001A - Fracture of unspecified part of neck of right femur, initial encounter for closed fracture
[2016-10-15] MEDS ORDERED: ceFAZolin SODIUM 1 GM in DEXTROSE 5 % IN WATER 100 ML IV SCH ×2 (09:00)
[2016-10-15] MEDS: CALCIUM CARBONATE/VITAMIN D3 1 TAB TABLET PO SCH ×2 (09:06→19:59)
[2016-10-15] MEDS: LORazepam 0.5 MG TABLET PO SCH ×2 (09:06→19:59)
[2016-10-15] MEDS: FLUoxetine HCL 20 MG CAPSULE PO SCH (09:06)
[2016-10-15] MEDS: ENOXAPARIN SODIUM 40 MG/0.4 ML SYRG SC SCH (17:48)
[2016-10-15] MEDS: SENNOSIDES/DOCUSATE SODIUM 1 TAB TABLET PO SCH (19:59)
[2016-10-16 06:06] LABS: Hematocrit 33.3 % (37.0-47.0); Hemoglobin 11.4 gm/dL (12.5-16.0); Mean Cell Volume 93.3 fl (78-100); Mean Corpuscular Hemoglobin 31.9 pg (27-31); Mean Corpuscular Hgb Conc 34.2 g/dl (32-36); Mean Platelet Volume 10.6 fl (6.0-9.5); Platelet Count 193 K/mm3 (150-450); Red Blood Count 3.57 M/mm3 (4.2-5.4); Red Cell Distribution Width 13.6 % (11.5-14.0); White Blood Count 12.9 K/mm3 (4.0-10.5)
[2016-10-16 06:17] LABS: Anion Gap 11.4 mmol/L (6.8-13.8); Calcium * 9.1 mg/dL (7.9-10.9); Carbon Dioxide 27.7 mmol/L (24-32.6); Estimated Creat Clear 45.4; Potassium 4.1 mmol/L (3.4-4.6)
[2016-10-16 06:28] LABS: BUN/Creatinine Ratio 13.3 (9.0-21.6)
--- NOTE | 2016-10-16 07:19 | PN ---
Subjective - Date and Time Seen Date: 10/16/16 Time: 07:13 Subjective Narrative: Slept better. Walking to chair with assist and walker. Objective - Review of Systems Generalized/Overall Review: Denies: Chills, Fever EENTM: Reports: No Symptoms Reported Respiratory: Denies: Cough, Shortness of Breath, Orthopnea Cardiac: Denies: Chest Pain, Edema, Palpitations Abdominal: Denies: Nausea, Vomiting Genitourinary Symptoms: Denies: Urgency, Frequency Musculoskeletal Complaints: Reports: Joint Pain - Vitals Vitals: Last Vital Signs Temp 37.2 C 10/16/16 06:51 Pulse 99 10/16/16 06:51 Resp 18 10/16/16 06:51 BP 135/62 10/16/16 06:51 Pulse Ox 96 10/16/16 06:51 - Abnormal Lab Findings Abnormal Lab Findings: Abnormal Lab Results 10/16/16 10/16/16 Range/Units 05:40 05:40 WBC 12.9 H (4.0-10.5) K/mm3 RBC 3.57 L (4.2-5.4) M/mm3 Hgb 11.4 L (12.5-16.0) gm/dL Hct 33.3 L (37.0-47.0) % MCH 31.9 H (27-31) pg MPV 10.6 H (6.0-9.5) fl Random Glucose 160 H (70-110) mg/dL - Exam Constitutional: Present: Alert, Oriented x3, Cooperative ENT Exam: Present: hearing grossly normal Neck: Present: supple Breasts: Present: Exam deferred Respiratory: Present: decreased breath sounds, No rales, No wheezing Cardiovascular/Chest: Present: regular rate, rhythm, no JVD, no murmur Abdomen: Present: Normal bowel sounds, soft, nontender, nondistended Extremity: Present: no pedal edema, no calf tenderness Cauti Physician Documentation - Urinary Catheter Management Urethral (Helms) Date of Insertion: 10/13/16 Time of Insertion: 13:36 Date of Removal: 10/15/16 Time of Removal: 06:55 Assessment/Plan - Problems/Diagnosis (1) Hip fracture, right Problem: Acute Qualifiers: Encounter type: initial encounter Fracture type: closed Qualified Code(s) : S72.001A - Fracture of unspecified part of neck of right femur, initial encounter for closed fracture Narrative: POD #2. Afebrile. Tmax 37.2. Leukocytosis likely still inflammatory. cont PT/ OT. (2) Hyperlipidemia Problem: Chronic Qualifiers: Hyperlipidemia type: mixed hyperlipidemia Qualified Code(s): E78.2 - Mixed hyperlipidemia Narrative: pacheco restart her statin (3) Impaired fasting glucose Problem: Chronic Narrative: on consistent carb diet. (4) Elevated blood pressure reading without diagnosis of hypertension Problem: Acute Narrative: BP improved
--- NOTE | 2016-10-16 08:49 | PN ---
Subjective - Date and Time Seen Date: 10/16/16 Subjective Narrative: No events overnight. Slept well. Pain well controlled. Making slow but steady progress with PT. Objective - Vitals Vitals: Last Vital Signs Temp 37.2 C 10/16/16 06:51 Pulse 99 10/16/16 06:51 Resp 18 10/16/16 06:51 BP 135/62 10/16/16 06:51 Pulse Ox 96 10/16/16 06:51 - Abnormal Lab Findings Abnormal Lab Findings: Abnormal Lab Results 10/16/16 10/16/16 Range/Units 05:40 05:40 WBC 12.9 H (4.0-10.5) K/mm3 RBC 3.57 L (4.2-5.4) M/mm3 Hgb 11.4 L (12.5-16.0) gm/dL Hct 33.3 L (37.0-47.0) % MCH 31.9 H (27-31) pg MPV 10.6 H (6.0-9.5) fl Random Glucose 160 H (70-110) mg/dL - Exam Exam Narrative: Gen: A&Ox4, NAD Resp: breathing non-labored on RA MSK: RLE--> dressings c/d/i, SILT, 5/5 EHL/FHL/DF/PF, cap refill brisk Cauti Physician Documentation - Urinary Catheter Management Urethral (Helms) Date of Insertion: 10/13/16 Time of Insertion: 13:36 Date of Removal: 10/15/16 Time of Removal: 06:55 Assessment/Plan Plan Narrative: 76 yo F w/ displaced R femoral neck fx s/p R CATRINA, POD #2. - WBAT, anterior hip precautions - reg diet - oral pain meds - Hgb 11.4 - monitor - PT/OT - DVT ppx: lovenox/SCDs/apolinar hose - continue care per Medicine team - patient will need wheeled walker upon discharge for 6 weeks secondary to decreased mobility from hip replacement - dispo: continue inpatient care, tentatively planning for d/c to SNF tomorrow am - Problems/Diagnosis (1) Hip fracture, right Problem: Acute Qualifiers: Encounter type: initial encounter Fracture type: closed Qualified Code(s) : S72.001A - Fracture of unspecified part of neck of right femur, initial encounter for closed fracture
[2016-10-16] MEDS: LORazepam 0.5 MG TABLET PO SCH ×2 (09:24→20:54)
[2016-10-16] MEDS: ASPIRIN 81 MG TABLET.DR PO SCH (09:29)
[2016-10-16] MEDS: FLUoxetine HCL 20 MG CAPSULE PO SCH (09:30)
[2016-10-16] MEDS: CALCIUM CARBONATE/VITAMIN D3 1 TAB TABLET PO SCH ×2 (09:30→20:54)
[2016-10-16] MEDS: oxyCODONE HCL/ACETAMINOPHEN 1 TAB TABLET PO PRN ×2 (10:06→18:00)
[2016-10-16 17:48] LABS: Urine Appearance Slightly Cloudy; Urine Bilirubin Negative (NEGATIVE); Urine Blood 150 /ul (NEGATIVE); Urine Color Yellow; Urine Ketone Negative (NEGATIVE); Urine Nitrite Negative (NEGATIVE); Urine Protein Negative (NEGATIVE); Urine Urobilinogen Normal (NORMAL)
[2016-10-16 17:49] LABS: Urine Bacteria None Seen; Urine RBC 0-5 /hpf (0-5); Urine WBC 0-5 /hpf (0-5)
[2016-10-16] MEDS: ENOXAPARIN SODIUM 40 MG/0.4 ML SYRG SC SCH (17:58)
[2016-10-16] MEDS: SENNOSIDES/DOCUSATE SODIUM 1 TAB TABLET PO SCH (20:54)
[2016-10-16] MEDS ORDERED: ROSUVASTATIN CALCIUM 10 MG TABLET PO SCH (21:00)
[2016-10-17] MEDS: oxyCODONE HCL/ACETAMINOPHEN 1 TAB TABLET PO PRN ×2 (04:35→09:41)
[2016-10-17 07:03] VITALS: BP 133/64
--- NOTE | 2016-10-17 08:52 | PN ---
Subjective - Date and Time Seen Date: 10/17/16 Subjective Narrative: No events overnight. Pain well controlled this am. Ready for discharge to SNF. Objective - Vitals Vitals: Last Vital Signs Temp 36.9 C 10/17/16 07:02 Pulse 90 10/17/16 07:02 Resp 16 10/17/16 07:02 BP 133/64 10/17/16 07:02 Pulse Ox 95 10/17/16 07:02 - Abnormal Lab Findings Abnormal Lab Findings: Abnormal Lab Results 10/16/16 Range/Units 17:36 Urine Blood 150 H (NEGATIVE) /ul - Exam Exam Narrative: Gen: A&Ox4, NAD Resp: breathing non-labored on RA MSK: RLE--> Prineo dressing intact, no drainage, SILT, / EHL/FHL/DF/PF, cap refill brisk Cauti Physician Documentation - Urinary Catheter Management Urethral (Helms) Date of Insertion: 10/13/16 Time of Insertion: 13:36 Date of Removal: 10/15/16 Time of Removal: 06:55 Assessment/Plan Plan Narrative: 76 yo F w/ displaced R femoral neck fx s/p R CATRINA, POD #3. - WBAT, anterior hip precautions - reg diet - oral pain meds - PT/OT - DVT ppx: lovenox/SCDs/apolinar hose - continue care per Medicine team - patient will need wheeled walker upon discharge for 6 weeks secondary to decreased mobility from hip replacement - dispo: continue inpatient care, tentatively planning for d/c to SNF tomorrow am Orthopedic Discharge Instructions: 1. WBAT, anterior hip precautions. 2. PT for progressive mobility and strengthening. No active hip abduction exercises for 6 weeks. 3. Oral pain meds. 4. May shower with Prineo dressing uncovered. Dressing needs to be inspected daily to make sure it is not peeling up and that there is no drainage. If it is peeling or there is drainage, please notify the Orthopedic office and dress the wound with 4x4 gauze and tape and switch to sponge baths only. 5. DVT prophylaxis: lovenox for total of 10 days post-op followed by 6 weeks of aspirin 325 mg daily. Bilateral apolinar hose for 6 weeks. 6. Please call the Orthopedic clinic at [phone] for any concerns regarding the patient including fever/chills, wound drainage, increasing pain, or any other concerns related to her surgery. 7. Follow up appointment scheduled for 2 weeks post-op in Orthopedic clinic. - Problems/Diagnosis (1) Hip fracture, right Problem: Acute Qualifiers: Encounter type: initial encounter Fracture type: closed Qualified Code(s) : S72.001A - Fracture of unspecified part of neck of right femur, initial encounter for closed fracture
[2016-10-17] MEDS: ASPIRIN 81 MG TABLET.DR PO SCH (09:18)
[2016-10-17] MEDS: CALCIUM CARBONATE/VITAMIN D3 1 TAB TABLET PO SCH (09:18)
[2016-10-17] MEDS: FLUoxetine HCL 20 MG CAPSULE PO SCH (09:18)
[2016-10-17] MEDS: LORazepam 0.5 MG TABLET PO SCH (09:22)
--- NOTE | 2016-10-17 11:18 | DS ---
(1) Hip fracture, right Diagnosis(s): Devi was admitted for right hip fracture. She was medically evaluated and cleared for repair. Right Total Hip Arthroplasty was performed on 10/14/16 by orthopedics. She did well and had routine post op care without concerns. She was discharged to home with orthopedic recommendations. Problem: Acute Qualifiers: Encounter type: initial encounter Fracture type: closed Qualified Code(s) : S72.001A - Fracture of unspecified part of neck of right femur, initial encounter for closed fracture Procedures Performed: see notes below List Procedures: Right Total Hip Arthroplasty 10/14/16 Discharge Disposition: Other HealthCare facility - [facility] Disposition: Other health care facility Condition: Stable Discharge Activity: Activity as tolerated - Weight bearing as tolerated, anterior hip precautions, no active hip abduction exercises for 6 weeks Discharge Diet: General/regular food Discharge Level of Care:: [facility] Therapy: Physicial Therapy, Occupation Therapy Referrals: Mahsa Long MD [Primary Care Provider] - Two Weeks Michael Sanchez MD [Staff Physician] - Two Weeks Problem Oriented Discharge Instructions to Patient/Family: Total Hip Replacement, Care After, [id number] Additional Patient Instructions (free text): Fax orders to [facility] at [phone]. Call report to . Follow up with Dr. Sanchez in orthopedic office in 2 weeks. [facility] will call you on Wednesday with appointment. Weight bearing as tolerated, anterior hip precautions. PT for progressive mobility and strengthening. No active hip abduction exercises for 6 weeks. May shower with Prineo dressing uncovered. Dressing needs to be inspected daily to make sure it is not peeling up and that there is no drainage. If it is peeling or there is drainage, please notify the orthopedic office and dress the wound with 4x4 gauze and tape and switch to sponge baths only. Bilateral KAREN hose. Call orthopedic clinic at [phone] for any concerns. Prescriptions (Any new or edited meds): Aspirin/Calcium Carbonate/Mag [Aspirin Buffered 325 mg Tab] 325 mg PO DAILY #42 tablet Enoxaparin Sodium [Lovenox] 40 mg SC Q24H #7 disp.syrin oxyCODONE HCL/ACETAMINOPHEN [Percocet 5-325 mg Tablet] 1 - 2 each PO Q6H PRN # 90 tablet PRN Reason: Pain Complete Home Medications List: Complete Home Medication List: Acetaminophen [Tylenol] 650 mg PO BID 12/05/12 Pravastatin Sodium [Pravachol] 80 mg PO HS 12/05/12 metFORMIN HCL [Glucophage] 500 mg PO BIDWM 12/05/12 Ascorbic Acid [Vitamin C with Jacki Hips] 1,000 mg PO DAILY 02/25/16 Aspirin [Aspirin Enteric Coated] 81 mg PO DAILY 02/25/16 Calcium Carbonate/Vitamin D3 [Calcium 600-Vit D3 800 Tablet] 1 each PO BID 02/24 Estrogens, Conjugated [Premarin] 0.5 gm VG 2XW PRN 02/25/16 FLUoxetine HCL [Prozac] 20 mg PO DAILY 02/25/16 Fexofenadine/Pseudoephedrine [Ethel-D 24 Hour Tablet] 1 each PO DAILY PRN 12/04 LORazepam [Ativan] 0.5 mg PO HS 02/25/16 Cetirizine HCl/Pseudoephedrine [Allergy D-12 Tablet] 1 each PO DAILY 10/13/16 Clobetasol Propionate/Emoll [Clobetasol Emollient 0.05% Crm] 15 gm TP PRN PRN Aspirin/Calcium Carbonate/Mag [Aspirin Buffered 325 mg Tab] 325 mg PO DAILY #42 tablet 10/17/16 Enoxaparin Sodium [Lovenox] 40 mg SC Q24H #7 disp.syrin 10/17/16 oxyCODONE HCL/ACETAMINOPHEN [Percocet 5-325 mg Tablet] 1 - 2 each PO Q6H PRN # 90 tablet 10/17/16
== END 2016-10-17 11:50 | DRG 470 ==
LOC: ER 11:58 → MS 14:26
PROVIDERS: ADMIT Internal Medicine; ATTEND Internal Medicine
PROC: 0SR90JZ Replacement of Right Hip Joint with Synthetic Substitute, Open Approach (ICD-10-PCS; principal; 2016-10-14 15:30)
DX: S72.001A Fracture of unspecified part of neck of right femur, initial encounter for closed fracture (principal); W01.0XXA Fall on same level from slipping, tripping and stumbling without subsequent striking against object, initial encounter; Y92.007 Garden or yard of unspecified non-institutional (private) residence as the place of occurrence of the external cause; R03.0 Elevated blood-pressure reading, without diagnosis of hypertension; E78.5 Hyperlipidemia, unspecified; Z79.82 Long term (current) use of aspirin